=== PATIENT | male | born 1965 | race Caucasian/White ===

== ENCOUNTER 2022-08-07 14:42 | Outpatient (REF) | payer OTHER, SELFPAY ==
--- NOTE | 2022-08-07 | PFT_ITS ---
FLOWS: FEV1 95% of predicted at 3.38 L. FVC 96% of predicted at 4.50 L. FEV1 to FVC ratio of 0.75. Positive bronchodilator response. LUNG VOLUMES: Total lung capacity 95% of predicted at 6.51 L. Residual volume 101% of predicted at 2.18 L. Slow vital capacity 93% of predicted at 4.33 L. Expiratory reserve volume 46% of predicted at 0.62 L. Diffusion capacity is normal. IMPRESSION: Reversible moderate obstructive ventilatory defect with positive bronchodilator response. Decreased expiratory reserve volume suggests extrathoracic restriction likely secondary to abdominal obesity. This test result suggests underlying asthma. Clinical correlation is advised. MD SAKINA Arreola/MODL / [id number]
== END 2022-08-07 14:43 | disposition home or self-care (01) ==
LOC: HO.RESP 14:42
PROVIDERS: Visit Provider Family Medicine
DX: R06.00 Dyspnea, unspecified (principal)
CPT/HCPCS: 94060; 94727; 94729

== ENCOUNTER 2023-04-19 23:58 | Emergency (ER) | payer OTHER, SELFPAY ==
[2023-04-20 00:01] VITALS: BP 127/69; PULSE 67; RESP 20; TEMP 37; O2SAT 94; BMI 35.0
[2023-04-20 00:16] VITALS: RESP 20; O2SAT 94
[2023-04-20 00:54] VITALS: PULSE 67; RESP 19; O2SAT 97
--- NOTE | 2023-04-20 01:00 | ED.GENADULT ---
HPI - General Adult General Chief complaint: Upper Respiratory Symptoms Stated complaint: Sob Time Seen by Provider: 04/20/23 00:38 Source: patient, RN notes reviewed and old records reviewed Mode of arrival: ambulatory Limitations: no limitations History of Present Illness HPI narrative: 57-year-old male presents for evaluation of shortness of breath Patient reports that he has a history of asthma but usually is well controlled He uses albuterol inhaler without any improvement in his symptoms Patient believes his symptoms are worsened by allergies in the summer as he does not experience asthma exacerbations in the winter He is also concerned that the air quality has been affecting his breathing He denies any fevers, chills, call for Any chest pain, leg swelling No history of DVTs or risk factors for DVTs including long travel Related Data Previous Rx's Medication Instructions Recorded fluticasone propionate 50 1 inh inhalation BID #60 ea 04/20/23 mcg/actuation blister powder for inhalation (Flovent Diskus) prednisone 20 mg tablet 40 mg PO DAILY #10 tabs 04/20/23 Allergies Allergy/AdvReac Type Severity Reaction Status Date / Time No Known Allergies Allergy Unverified 07/06/20 15:09 [No Known Allergies*] Review of Systems Constitutional: Constitutional: Denies chills and Denies fever(s) Cardiovascular: Cardiovascular: Denies chest pain, Denies chest pain at rest and Reports dyspnea Respiratory: Respiratory: Reports cough, Reports dyspnea and Reports wheezing Gastrointestinal: Gastrointestinal: Denies abdominal pain, Denies nausea and Denies vomiting Musculoskeletal: Musculoskeletal: Denies back pain Integumentary/Breasts: Skin/Breast: Denies rash Allergic/Immunologic: Allergic/Immunologic: Reports wheezing PMFSH Social History Social History Alcohol intake: never Smoked in Last 30 Days: No Use of substances other than those prescribed or required for medical reasons: No Advance Directives: No Advance Directives Information Provided: No Physical Exam ED Vital Signs: Vital Signs - 24 hr 04/20/23 00:01 04/20/23 00:16 04/20/23 00:16 Temperature 98.6 F Pulse Rate 67 Respiratory Rate 20 20 Blood Pressure 127/69 Pulse Oximetry 94 94 Oxygen Delivery Method Room Air Nasal Cannula 04/20/23 00:54 Temperature Pulse Rate 67 Respiratory Rate 19 Blood Pressure Pulse Oximetry Oxygen Delivery Method BMI result Body Mass Index 35.0 Const General: healthy appearing, comfortable, no acute distress, alert and awake Nutritional Appearance: well nourished Orientation/consciousness: patient oriented x3 HENMT Head: Yes normocephalic and Yes atraumatic Eyes Eyelids: Yes eyelids normal Conjunctivae: conjunctivae normal Sclerae: sclerae normal Corneas: corneas normal Pupils: Equal, round and reactive pupils present EOM: EOMs intact bilaterally Neck Neck: Yes full ROM Resp Other: Diffuse expiratory wheeze. Effort & Inspection: normal respiratory effort, able to speak in complete sentences and not labored Cardio Other: No lower extremity edema Rate: regular rate Rhythm: regular rhythm Neuro General: patient oriented x3 Cranial nerves: Yes Equal, round and reactive pupils present and Yes Bilaterally intact EOM present Cognition (Neuro): normal cognition Extrem Other: Moving all extremities well without any obvious deformities Course Reevaluation(s) Reevaluation #1: Patient reports feeling much better after DuoNeb. He is requesting a refill of his Flovent Time: 01:11 Medications Administered Discontinued Medications Generic Name Dose Route Start Last Admin Trade Name Leoncioq PRN Reason Stop Dose Admin Albuterol Sulfate 2.5 mg/ 0 mg 04/20/23 00:43 04/20/23 00:52 Albuterol/Ipratropium 3 ml INHALE 04/20/23 00:44 5 each ONCE ONE Administration Prednisone 40 mg 04/20/23 00:43 04/20/23 01:01 Prednisone 20 Mg Tablet PO 04/20/23 00:44 40 mg ONCE ONE Administration Medical Decision Making Medical Decision Making MDM Narrative: 57-year-old male with history of asthma presents for evaluation of shortness of breath. On exam he is wheezing throughout. His chest x-ray is clear. Most consistent with an asthma exacerbation. Will treat with a DuoNeb and he will be given prednisone. Patient's oxygen saturation 96% on room air Differential Diagnosis Asthma Bronchitis Virus neck Pneumonia Independent Interpretation I performed an independent interpretation of an: Plain X-Ray (No infiltrates, pleural effusion or pneumothorax) Radiology Impression Discussion of test interpretation with radiology: I have reviewed the radiologist's reading. (No acute disease in the chest) Discharge Plan Discharge Clinical Impression: Acute asthma exacerbation Patient Disposition: Home, Self-Care Instructions: Asthma (ED) Additional Instructions: Continue using your albuterol inhalers as prescribed Use Flovent up to every 12 hour Use prednisone 40 mg daily for the next 5 days Follow-up with your primary doctor Return for new or worsening symptoms Prescriptions: New prednisone 20 mg tablet 40 mg PO DAILY Qty: 10 0RF Flovent Diskus 50 mcg/actuation blister with device 1 inh inhalation BID Qty: 60 0RF
== END 2023-04-20 01:35 | disposition home or self-care (01) ==
PROVIDERS: Emergency Provider Emergency Medicine; PCP Family Medicine
DX: J45.901 Unspecified asthma with (acute) exacerbation (principal); Z79.899 Other long term (current) drug therapy
CPT/HCPCS: 71046; 94640; 99284; 99285